=== PATIENT | female | born 1990 | race Caucasian/White ===

== ENCOUNTER 2017-01-19 15:08 | Emergency (ER) | payer OTHER ==
[~2017-01-19] VITALS: Ht 175.3 cm; Wt 63.6 kg
[~2017-01-19 15:08] MED LIST: DOXY100T2 PO; METR500T PO; PREN1TAB78 PO
[2017-01-19 15:12] VITALS: BP 108/72; PULSE 79; RESP 20; O2SAT 100
[2017-01-19] MEDS ORDERED: 0.9% Sodium Chloride 1,000 ML IV ONE (15:39)
[2017-01-19] MEDS ORDERED: Ondansetron 2 mg/mL 2 mL Inj IVPUSH PRN (15:40)
[2017-01-19] MEDS: HYDROmorphone 0.5 mg/0.5 mL iSecure Syringe IVPUSH PRN ×2 (15:49→18:50)
--- NOTE | 2017-01-19 16:06 | ED.REPORT ---
HPI-General Illness Date of Service Jan 19, 2017 ED Provider: Jairo Bond MD Nursing Notes Stated Complaint: SEVERE PAIN IN ABDOMEN Chief Complaint: Female Abdominal Pain Allergies: Coded Allergies: No Known Allergies (Verified Allergy, Unknown, 01/19/17) Scheduled Doxycycline Hyclate (Doxycycline Hyclate) 100 Mg Tablet 100 MG PO BID Metronidazole (Flagyl) 500 Mg Tablet 500 MG PO Q8H Vits W-Ca,Fe,FA(<1Mg) ( Formula) 1 Each Tablet 1 EACH PO DAILY General Time Seen by MD: 15:38 Past Medical History Past Medical History Healthy Past Surgical History Reports: Appendectomy Smoking History Current Every Day Smoker Social History Alcohol Use: Denies alcohol use Drug Use: Denies drug use Other Social History: Good social support Ambulatory Status Independent Physical Exam Vital Signs Vital Signs Date Time Temp Pulse Resp B/P Pulse Ox O2 Delivery O2 Flow Rate FiO2 01/19/17 15:12 36.8 79 20 108/72 100 Room Air Interpretation & Diagnostics Lab Results Interpretation Result Diagram: 01/19/17 1527 01/19/17 1527 Test 01/19/17 15:27 White Blood Count 7.9th/mm3 (3.8-10.1) Red Blood Count 3.55mil/mm3 (3.90-5.20) Hemoglobin 11.2g/dL (12.0-15.6) Hematocrit 34.4% (35.0-46.0) Mean Corpuscular Volume 96.9fL (81-100) Mean Corpuscular Hemoglobin 31.5pg (27.0-35.0) Mean Corpuscular Hemoglobin Concent 32.6% (32.0-37.0) Red Cell Distribution Width 13.5% (12.3-15.4) Platelet Count 182bil/L (150-400) Neutrophils (%) (Auto) 65.4% (40-74) Lymphocytes (%) (Auto) 24.9% (14-46) Monocytes (%) (Auto) 7.7% (4-12) Eosinophils (%) (Auto) 0.9% (0-5) Basophils (%) (Auto) 1.0% (0-3) Sodium Level 139mEq/L (134-144) Potassium Level 3.7mEq/L (3.5-5.2) Chloride Level 104mEq/L (97-108) Carbon Dioxide Level 24mmol/L (18-29) Blood Urea Nitrogen 14mg/dL (6-20) Creatinine 0.68mg/dL (0.57-1.00) Estimat Glomerular Filtration Rate 150mL/min (>59) Glucose Level 76mg/dL (60-99) Calcium Level 9.0mg/dL (8.5-10.1) Magnesium Level 1.9mg/dL (1.6-2.6) Total Bilirubin 0.2mg/dL (0.0-1.2) Aspartate Amino Transf (AST/SGOT) 15U/L (0-50) Alanine Aminotransferase (ALT/SGPT) 7U/L (0-32) Alkaline Phosphatase 45U/L (25-150) Total Protein 7.0g/dL (6.4-8.4) Albumin 4.4g/dL (3.4-5.0) Lipase 20U/L (13-60) Discharge & Departure Referrals: Araceli Rios (PCP) EDSupervising Provider for APC: Jairo Bond MD Attending Statement I saw and evaluated the patient in conjunction with the [PA/VENDING SUPERVISOR]. I agree with the plan and findings as documented above. In brief, [] presenting to the ED for evaluation []. Well appearing, no acute distress. Nonlabored respirations. Good peripheral perfusion. RRR. No []. Given [], plan discharge home w/ careful return precautions, close outpatient follow up. Patient agreeable to plan as stated, no further questions. Jairo Bond MD Jan 19, 2017 16:06
[2017-01-19 16:18] LABS: EOSINOPHILS % (AUTO) 0.9 % (0-5); MONOCYTES % (AUTO) 7.7 % (4-12); Mean Corpuscular Hemoglobin 31.5 pg (27.0-35.0); Mean Corpuscular Volume 96.9 fL (81-100); NEUTROPHILS % (AUTO) 65.4 % (40-74); Platelet Count 182 bil/L (150-400)
--- NOTE | 2017-01-19 16:40 | ED.REPORT ---
HPI-Abd Pain F Under 40 Date of Service Jan 19, 2017 ED Provider: Isabel Blackburn History of Present Illness: [age] female here for sudden onset of pelvic pain at about 2 PM today. She has been dry heaving and nauseous but no vomiting and no diarrhea. No fever. She has a history of ovarian cysts that felt similar to this. She has had 5 episodes of ovarian cysts in the past. No fever. Lmp Was 3 weeks ago. She does have an IUD which she thinks is making the ovarian cyst worse. Nursing Notes Stated Complaint: SEVERE PAIN IN ABDOMEN Chief Complaint: Female Abdominal Pain Nursing Notes Reviewed: Yes Allergies: Coded Allergies: No Known Allergies (Verified Allergy, Unknown, 01/19/17) Scheduled Doxycycline Hyclate (Doxycycline Hyclate) 100 Mg Tablet 100 MG PO BID Levofloxacin (Levaquin) 750 Mg Tablet 750 MG PO DAILY Metronidazole (Flagyl) 500 Mg Tablet 500 MG PO Q8H Vits W-Ca,Fe,FA(<1Mg) ( Formula) 1 Each Tablet 1 EACH PO DAILY General Time Seen by MD: 16:33 Chief Complaint Abdominal pain, Nausea Hx Obtained From: Patient Arrived By: Walk-in Sudden in Onset?: Yes Onset Occurred: 1 - 4 hours ago Symptom Duration: Constant Progression since Onset: Unchanged Location: : Abdomen lower: Suprapubic Severity: Current: Severe Severity: Maximum: Severe Recent Healthcare: No recent doctor visit Similar Sx Previous: Yes Past Medical History Past Medical History Notes: Denies Past Medical History Healthy Past Surgical History Reports: Appendectomy Smoking History Current Every Day Smoker Social History Alcohol Use: Denies alcohol use Drug Use: Denies drug use Other Social History: Good social support Ambulatory Status Independent Review of Systems Constitutional: Denies: Fatigue, Fever Respiratory: Denies: Dyspnea on exertion GI: Reports: Abdominal pain, Nausea, Denies: Vomiting Female: Reports: Flank pain, Denies: Dysuria Complete sys rev & neg: except as marked. Physical Exam Initial Vital Signs Vital Signs (First) Date Time Temp Pulse Resp B/P Pulse Ox O2 Delivery O2 Flow Rate FiO2 01/19/17 15:12 36.8 79 20 108/72 100 Room Air Initial VS: Reviewed, Vital signs normal General/Constitutional: Awake, Alert, Well appearing Distress / Hydration: Positive: Distress mild Respiratory / Chest: Breath sounds NL, Breath sounds = bilat, No respiratory distress, No rales, No rhonchi, No wheezing Cardiovascular: Heart rate NL, Regular rhythm, Heart sounds NL, Peripheral circulation NL Abdomen: Atraumatic, Soft, McBurney's non-tender, No guarding, No rebound, BS normoactive, No distention, No hernia, No palpable mass, No pulsatile mass Tenderness/Guarding/Rebound: Positive: Tender suprapubic Generalized lower abdominal tenderness worse on the left side. She does have right-sided CVA tenderness as well as mid low back tenderness. No rebound, no peritoneal signs vaginal exam- vaginal canal pink, copious amt of white d/c noted back by cervix, IUD strings visible. great discomfort with exam, IUD not removed. +CMT Head / Eyes: Normocephalic, PERRL Skin: Atraumatic, Color NL, No rash Interpretation & Diagnostics Lab Results Interpretation Result Diagram: 01/19/17 1527 01/19/17 1527 Test 01/19/17 15:27 01/19/17 18:00 White Blood Count 7.9th/mm3 (3.8-10.1) Red Blood Count 3.55mil/mm3 (3.90-5.20) Hemoglobin 11.2g/dL (12.0-15.6) Hematocrit 34.4% (35.0-46.0) Mean Corpuscular Volume 96.9fL (81-100) Mean Corpuscular Hemoglobin 31.5pg (27.0-35.0) Mean Corpuscular Hemoglobin Concent 32.6% (32.0-37.0) Red Cell Distribution Width 13.5% (12.3-15.4) Platelet Count 182bil/L (150-400) Neutrophils (%) (Auto) 65.4% (40-74) Lymphocytes (%) (Auto) 24.9% (14-46) Monocytes (%) (Auto) 7.7% (4-12) Eosinophils (%) (Auto) 0.9% (0-5) Basophils (%) (Auto) 1.0% (0-3) Sodium Level 139mEq/L (134-144) Potassium Level 3.7mEq/L (3.5-5.2) Chloride Level 104mEq/L (97-108) Carbon Dioxide Level 24mmol/L (18-29) Blood Urea Nitrogen 14mg/dL (6-20) Creatinine 0.68mg/dL (0.57-1.00) Estimat Glomerular Filtration Rate 150mL/min (>59) Glucose Level 76mg/dL (60-99) Calcium Level 9.0mg/dL (8.5-10.1) Magnesium Level 1.9mg/dL (1.6-2.6) Total Bilirubin 0.2mg/dL (0.0-1.2) Aspartate Amino Transf (AST/SGOT) 15U/L (0-50) Alanine Aminotransferase (ALT/SGPT) 7U/L (0-32) Alkaline Phosphatase 45U/L (25-150) Total Protein 7.0g/dL (6.4-8.4) Albumin 4.4g/dL (3.4-5.0) Lipase 20U/L (13-60) Urine Color Dark yellow (YELLOW) Urine Appearance Turbid (CLEAR,HAZY) Urine pH 7.0 (5.0-8.0) Urine Specific [place] 1.015 (1.003-1.035) Urine Protein 30mg/dL (NEG,TRACE) Urine Glucose (UA) Negativemg/dL (NEGATIVE) Urine Ketones Tracemg/dL (NEGATIVE) Urine Occult Blood Large (NEGATIVE) Urine Nitrite Negative (NEGATIVE) Urine Bilirubin Negative (NEGATIVE) Urine Urobilinogen Normalmg/dL (NORMAL) Urine Leukocyte Esterase Trace (NEGATIVE) Urine RBC >50/hpf (0-2) Urine WBC 6-10/hpf (0-5) Urine Epithelial Cells Many/hpf (NONE-MOD) Urine Crystals None seen (NONE SEEN) Urine Bacteria Moderate/hpf (NONE-FEW) Urine Hyaline Casts None/lpf (NONE) Urine Granular Casts None seen (NONE SEEN) Urine Waxy Casts None seen (NONE SEEN) Urine Red Blood Cell Casts None seen (NONE SEEN) Urine White Blood Cell Casts None seen (NONE SEEN) Urine Mucus None seen (None Seen) Urine Trichomonas None seen (NONE SEEN) Urine Yeast None (NONE SEEN) Urinalysis Comment None Urine Culture Reflexed Indicated US Focused OB PROCEDURE: US PELVIC SONOGRAM + TRANSVAGINAL SONOGRAM INDICATIONS: Pelvic pain. TECHNIQUE: Real-time scanning was performed of the pelvic organs, with image documentation. Additional endovaginal scanning was necessary due to incomplete visualization of the adnexal and endometrial structures by transabdominal scanning. COMPARISON: None. FINDINGS: Transabdominal scanning: Limited scanning through the kidneys shows no hydronephrosis. No pathologic free abdominal or pelvic fluid. Endovaginal scanning: Uterus: Uterus is normal in size at 7.6 x 7.1 x 3.5 cm. The endometrium measures 12.2 mm in combined thickness. An intrauterine device is present, which extends into the cervical os. Ovaries: Within normal limits bilaterally. Multiple peripheral left ovarian cystS. 10 mm right ovarian cyst. IMPRESSION: 1. No acute process. 2. Low lying IUD. Re-Eval/Medical Decision Med Decision/Clinical Course Med Decision/Clinical Course: Patient had a pelvic exam that showed positive CMT. There was some discharge present but the buttock mount did not show any yeast or BV. It did show a few white blood cells.. He also had right-sided CVA tenderness on exam with dark urine. She had 1 day of urinary symptoms last week some cranberry juice and they have been gone for one week. She is not noted any fevers. Plan today would be to treat for pyelonephritis and a possible PID. Treat both of these we are going to do 2 grams of Zithromax x 1 dose and 750 mg Levaquin for 14 days discussed d/c plan with dr lao and agrees. Discharge & Departure Shift Change Sign-Out Laboratory Evaluation: Lab evaluation discussed Imaging Studies: Imaging discussed Procedures: Results discussed Response to Therapy: Improved Primary Impression: Pelvic inflammatory disease (PID) Additional Impression: Pyelonephritis Disposition: Home Discharge Condition All VS Reviewed: Yes Condition: Stable Patient Instructions: Kidney Infection (DC), Pelvic Inflammatory Disease (ED) Additional Instructions: Take antibiotics as prescribed. Return immediately if increased pain, fevers or vomiting, or any other worsening symptoms Including chest pain or chest palpitations. If you are still having any abdominal pain that is severe tomorrow you must be rechecked either here or with your PCP. Your being treated for both a pelvic infection as well as kidney infection as you had signs and symptoms of both of these and her workup today. Your urine is being cultured and the results be back in 3 days as we have gonorrhea and chlamydia test. You should follow up with your PCP in the next few days for review of these tests. We will call you if you need to change your course of antibiotics. Pelvic rest. Tylenol and ibuprofen as needed for pain. Take lots of water as you appeared dehydrated today. Referrals: [facility] (PCP) [facility] EDSupervising Provider for APC: Jairo Lao MD Attending Statment I saw and evaluated the patient in conjunction with the DIRECTOR OF EDUCATION AND TRAINING. I agree with the plan and findings as documented above. In brief, 26-year-old female presenting to the ED for evaluation of abdominal pain. Appears uncomfortable. Nonlabored respirations. Good peripheral perfusion. RRR. No rebound or guarding. Pelvic exam findings and ultrasound as per above. Given improvement and findings, seems reasonable to treat and discharge home w/ careful return precautions, close outpatient follow up. Instructed patient to return if pain was to worsen as a CT scan may be needed at that time, however reasonable to hold off for now. Patient agreeable to plan as stated, no further questions. copies to: Jairo Lao MD, Linnea K [facility] Jan 19, 2017 16:40 Jaior Lao MD Jan 19, 2017 17:02
[2017-01-19 16:44] LABS: Magnesium 1.9 mg/dL (1.6-2.6)
--- NOTE | 2017-01-19 17:42 | DRSVH ---
PROCEDURE: US PELVIC SONOGRAM + TRANSVAGINAL SONOGRAM INDICATIONS: Pelvic pain. TECHNIQUE: Real-time scanning was performed of the pelvic organs, with image documentation. Additional endovagi nal scanning was necessary due to incomplete visualization of the adnexal and endometrial structures by transabdominal scanning. COMPARISON: None. FINDINGS: Transabdominal scanning: Limited scanning through the kidneys shows no hydronephrosis. No pathologi c free abdominal or pelvic fluid. Endovaginal scanning: Uterus: Uterus is normal in size at 7.6 x 7.1 x 3.5 cm. The endometrium measures 12.2 mm in combine d thickness. An intrauterine device is present, which extends into the cervical os. Ovaries: Within normal limits bilaterally. Multiple peripheral left ovarian cystS. 10 mm right ovaria n cyst. IMPRESSION: 1. No acute process. 2. Low lying IUD. Dictated by: Raimundo Kelley M.D. on 01/19/2017 at 17:39 Approved by: Raimundo Kelley M.D. on 01/19/2017 at 17:41
[2017-01-19 18:25] LABS: APPEARANCE,URINE TURBID (CLEAR,HAZY); COLOR,URINE DARK YELLOW (YELLOW); OCCULT BLOOD,URINE LARGE (NEGATIVE); UROBILINOGEN,URINE NORMAL (NORMAL)
[2017-01-19] MEDS ORDERED: levoFLOXacin 750 mg Tablet PO ONE (19:40)
[2017-01-19] MEDS ORDERED: LEVO750T9 PO (20:05)
[2017-01-19 20:21] VITALS: BP 111/67; PULSE 73; RESP 16; O2SAT 99
== END 2017-01-19 20:23 | disposition home or self-care (01) ==
LOC: SED 15:08
DX: N73.9 Female pelvic inflammatory disease, unspecified (principal); N10 Acute pyelonephritis; F17.200 Nicotine dependence, unspecified, uncomplicated
CPT/HCPCS: 36415; 76830; 76856; 80053; 81000; 81025; 83690; 83735; 85025; 86850; 87086; 87088; 87210; 87491; 87591; 96361; 96374; 96375; 99285; J1170; J2405; J7030